=== PATIENT | female | born 1965 | race Caucasian/White ===

== ENCOUNTER 2019-09-24 13:07 | Emergency (ER) | payer BC, SELFPAY ==
--- NOTE | ~2019-09-24 | XR_ITS ---
EXAMINATION: XR elbow LT min 3V DATE: 09/24/2019 13:42 INDICATION: Left elbow pain. Fall. TECHNIQUE: 4 views of left elbow were obtained. COMPARISON: None. FINDINGS: Bone alignment is normal. No fracture. Joint spaces are well maintained. There is an enthes ophyte at medial humeral epicondyle. There is no elbow joint effusion. IMPRESSION: 1. No fracture. Reviewed, dictated and finalized at location A. T END ARCHITECT IMPRESSION: 1. No fracture.
[2019-09-24 13:23] VITALS: BP 123/83; PULSE 85; RESP 16; TEMP 36.4; O2SAT 98
--- NOTE | 2019-09-24 14:44 | ED.GENADULT ---
HPI - General Adult General Chief complaint: Extremity Injury, Upper Stated complaint: FALL/INJURED L ELBOW Time Seen by Provider: 09/24/19 14:44 Source: patient and RN notes reviewed Mode of arrival: ambulatory Limitations: no limitations History of Present Illness HPI narrative: 54-year-old female presents with complains of LT elbow tenderness and swelling for 6 days. Ice and Ibuprofen (800mg last this morning @07:00) with some relief. Lisa says she fell down onto concrete hitting her LT elbow. No radiation of pain. Exacerbation factors consist of movement and palpation of LT elbow. The relieving factor is immobility. Dominant hand is the RIGHT HAND. No suspected abuse. Denies hitting head with fall. Denies loss of consciousness, dizziness, or seizure activity. Remains active. Denies fever or chills. Lisa denies being says she is post menopausal. Some parts of this dictation were generated by voice recognition software and may contain typographical and/or grammatical inaccuracies. Related Data Home Medications Medication Instructions Recorded Confirmed B/P Med 09/24/19 levothyroxine [Synthroid] 100 mcg PO DAILY 09/24/19 09/24/19 Allergies Allergy/AdvReac Type Severity Reaction Status Date / Time latex Allergy Unknown SKIN Verified 09/24/19 13:32 IRRITATION Review of Systems Review of Systems: Narrative: CONSTITUTIONAL: Denies fever, chills, sweats. EYES: Denies visual changes, redness, discharge. ENT: Denies rhinorrhea, congestion, sore throat, otalgia. CARDIOVASCULAR: Denies chest pain, palpitations, edema. RESPIRATORY: Denies dyspnea, wheezing, cough. GASTROINTESTINAL: Denies abdominal pain, nausea, vomiting, diarrhea. GENITOURINARY: Denies dysuria, hematuria, abnormal discharge SKIN: Denies rash or itching. MUSCULOSKELETAL: Denies acute back pain or myalgia. Complains of LT elbow pain and swelling. NEUROLOGIC: Denies numbness or focal weakness. PSYCHIATRIC: Denies anxiety or depression. [facility] Past Medical History Medical History (Updated 09/25/19 @ 00:01 by Caryl Flowers) Hypertension Hypothyroidism Surgical History Surgical History (Updated 09/24/19 @ 14:51 by RAJWINDER Kumar) History of right knee joint replacement ACL Family History Family History (Updated 09/24/19 @ 14:52 by RAJWINDER Kumar) Mother Family history of malignant neoplasm of breast in first degree relative Diabetes mellitus Hypertension Social History Social History (Updated 09/24/19 @ 14:51 by RAJWINDER Kumar) Smoking status: Former smoker Second hand tobacco smoke exposure: No Smoking end date: 07/22/06 Alcohol intake: current Substance use: never Living arrangements: with family Occupation/Education: occupation Gender identity (if verbalized by the patient): Female Exam Narrative: Exam Narrative: GENERAL APPEARANCE: The patient is a well-developed, well-nourished child who is awake, active. Interacts appropriately with surroundings and examiner, in no acute distress. HEAD: Atraumatic. Normocephalic. No temporal or scalp tenderness. EYES: Moist and bright. Sclera and conjunctivae normal. No discharge. PERRLA. Extraocular motions intact. Gross visual acuity intact. NECK: Supple and nontender with full range of motion without discomfort. No meningeal signs. LUNGS: Equal and bilateral breath sounds without wheezes, rales or rhonchi. CHEST: The chest wall is without retractions or use of accessory muscles. HEART: Has a regular rate and rhythm without murmur, gallops, click or rub. ABDOMEN: Soft, nontender with positive active bowel sounds. No rebound tenderness. No masses, no hepatosplenomegaly. EXTREMITIES: Without cyanosis, clubbing or edema. LT UE (elbow) with mild reproducible tenderness with manipulation and palpation. No significant swelling and no ecchymosis. Normal strength and aligned. No deformity. Skin intact. No open areas or laceration
== END 2019-09-24 15:00 | disposition home or self-care (01) ==
PROVIDERS: Emergency Provider Nurse Practitioner Family; PCP Physician Assistant
DX: S50.02XA Contusion of left elbow, initial encounter (principal); W19.XXXA Unspecified fall, initial encounter; I10 Essential (primary) hypertension; E03.9 Hypothyroidism, unspecified; Z96.651 Presence of right artificial knee joint; Z87.891 Personal history of nicotine dependence
CPT/HCPCS: 73080; 99213; G0463

== ENCOUNTER 2020-04-12 11:47 | Emergency (ER) | payer BC, SELFPAY ==
--- NOTE | ~2020-04-12 | XR_ITS ---
EXAMINATION: XR knee LT min 4V EXAM DATE: 04/12/2020 12:09 INDICATION: Initial encounter following injury, with pain of the left knee. TECHNIQUE: Left knee frontal, crosstable lateral, orthogonal oblique projections for interpretation. There is no prior study for comparison. FINDINGS: There is large left knee lipohemarthrosis, likely result of the left lateral tibial platea u acute closed posttraumatic nondisplaced fracture. This finding has been indicated, marked on the ex amination for review, clinical correlation. No other acute findings are present. There is mild prima ry osteoarthritis. IMPRESSION: Acute left lateral tibial plateau fracture. Lipohemarthrosis. Reviewed, dictated and finalized at location B.
[2020-04-12 11:52] VITALS: BP 153/112; PULSE 90; RESP 16; TEMP 36.2; O2SAT 99
--- NOTE | 2020-04-12 12:00 | ED.LOWEXIN ---
HPI - Extremity Injury (Lower) General Chief Complaint: Extremity Injury, Lower Stated Complaint: injured l knee Source: patient and RN notes reviewed Limitations: no limitations History of Present Illness HPI Narrative: The patient, who is on a few meds, presents with left knee pain. Patient states she was walking her dog [large mastiff] prior to arrival , she slipped and fell landing on her left knee. She complains of moderate pain is worse with motion, better at rest, located laterally without bleeding or deformity. Surgical history is remarkable that she had a prior right ACL [[facility]] . Screening vitals remarkable for elevated blood pressure [she did not take her meds today ] andx-ray remarkable for nondisplaced left lateral tibial plateau fracture so patient referred to orthopedics on-call Dr. Cheng -who advises, wear crutches with knee immobilizer, to call to confirm appointment. Related Data Home Medications Medication Instructions Recorded Confirmed B/P Med 09/24/19 levothyroxine [Synthroid] 100 mcg PO DAILY 09/24/19 09/24/19 Allergies Allergy/AdvReac Type Severity Reaction Status Date / Time latex Allergy Unknown SKIN Verified 09/24/19 13:32 IRRITATION Review of Systems Review of Systems: Narrative: General/Constitutional: No weight loss,fever Eyes: N0: Redness,discharge Ears/Nose/Throat: No: Epistaxis,ear discharge Respiratory: Denies: Hemoptysis Gastrointestinal: No Vomiting, Bleeding-rectal Skin: No Lumps, eruption Neurologic: No Focal Weakness,Sz Hematologic: Denies: Petechiae/Purpura Psychiatric: No: Suicida ideationl All Other Systems: Reviewed and Negative [facility] Past Medical History Medical History (Updated 04/12/20 @ 12:27 by Gary Stark MD) Hypertension Hypothyroidism Surgical History Surgical History (Updated 09/24/19 @ 14:51 by RAJWINDER Kumar) History of right knee joint replacement ACL Family History Family History (Updated 09/24/19 @ 14:52 by RAJWINDER Kumar) Mother Family history of malignant neoplasm of breast in first degree relative Diabetes mellitus Hypertension Social History Social History (Updated 09/24/19 @ 14:51 by RAJWINDER Kumar) Smoking status: Former smoker Second hand tobacco smoke exposure: No Smoking end date: 07/22/06 Alcohol intake: current Substance use: never Gender identity (if verbalized by the patient): Female Comments At time of signature, agree with nursing past medical, surgical, social and family history. There is no relevant family history pertinent to the presenting complaint Exam Narrative: Exam Narrative: Appearance: Overweight/well nourished, Conjunctiva clear Mouth/Throat: Normal appearing, Supple Respiratory: Airway patent, No respiratory distress MS knee: Normal strength (mostly intact, limited flexion/extension by pain), Tenderness ( laterally, with mild decreased ROM), Swelling (laterally), Other ( unable to do Jim, anterior drawer, no collateral laxity Skin: Warm, Dry, Normal color Neurological: A&O x3, Normal affect Course Course Emergency Course: Films visualized, interpreted by radiologist, agree, Abnormal see report Vital Signs Vital signs: Vital Signs Temperature 97.2 F L 04/12/20 11:52 Pulse Rate 90 04/12/20 11:52 Respiratory Rate 16 04/12/20 11:52 Blood Pressure 153/112 H 04/12/20 11:52 Pulse Oximetry 99 04/12/20 11:52 Temperature 97.2 F L 04/12/20 11:52 Pulse Rate 90 04/12/20 11:52 Respiratory Rate 16 04/12/20 11:52 Blood Pressure 153/112 H 04/12/20 11:52 Pulse Oximetry 99 04/12/20 11:52 Discharge Plan Discharge Clinical Impression: Closed nondisplaced fracture of left tibial plateau Qualifiers: Encounter type: initial encounter Qualified Code(s): S82.145A - Nondisplaced bicondylar fracture of left tibia, initial encounter for closed fracture Patient Disposition: Home, Self-Care
== END 2020-04-12 12:43 | disposition home or self-care (01) ==
PROVIDERS: Emergency Provider Emergency Medicine; PCP Physician Assistant
DX: S82.145A Nondisplaced bicondylar fracture of left tibia, initial encounter for closed fracture (principal); W01.0XXA Fall on same level from slipping, tripping and stumbling without subsequent striking against object, initial encounter; Y93.K1 Activity, walking an animal; I10 Essential (primary) hypertension; E03.9 Hypothyroidism, unspecified; Z87.891 Personal history of nicotine dependence
CPT/HCPCS: 73564; 99214; G0463; L1830

== ENCOUNTER 2020-04-17 10:06 | Outpatient (CLI) | payer BC, SELFPAY ==
--- NOTE | ~2020-04-17 | CT_ITS ---
. EXAMINATION: CT knee LT wo con DATE: 04/17/2020 11:00 INDICATION: Left lateral tibial plateau fracture. TECHNIQUE: Computed tomography (CT) of the left knee was performed without intravenous contrast. Auto mated exposure control and iterative reconstruction technique were employed. The dose-length product was 504.84 mGy-cm. COMPARISON: Left knee radiographs 04/12/2020 FINDINGS: There is a split depression fracture of lateral tibial plateau involving 30% of the articul ar surface laterally with up to 5 mm depression of the articular surface. The split component of the fracture is nondisplaced. There is mild tricompartmental osteoarthritis of the knee. There is a large lipohemarthrosis. IMPRESSION: 1. Split depression fracture of lateral tibial plateau. 2. Mild left knee osteoarthritis. 3. Large lipohemarthrosis. Reviewed, dictated and finalized at location A.
== END 2020-04-17 10:07 | disposition home or self-care (01) ==
PROVIDERS: PCP Physician Assistant; Visit Provider Orthopaedic Surgery
DX: S82.122A Displaced fracture of lateral condyle of left tibia, initial encounter for closed fracture (principal); X58.XXXA Exposure to other specified factors, initial encounter; M17.12 Unilateral primary osteoarthritis, left knee
CPT/HCPCS: 73700

== ENCOUNTER 2022-05-28 01:06 | Day surgery (SDC) | payer OTHER, SELFPAY ==
[2022-05-17 14:12] VITALS: BMI 33.0
--- NOTE | 2022-05-27 20:01 | P.HP_ITS ---
History of Present Illness History of Present Illness Consent: Risks, benefits, and alternatives have been discussed and questions answered. Patient agrees to proceed with procedure. Chief complaint: neoplasm screening, dysphagia Narrative: Lisa Nagel is a 57 year old female with intermittent dysphagia. Her brother from esophageal ccancer. she has noted for the past year that foods such as sandwiches or rice will get caught nursing home down the chest. Drinking water may eventually help it go down. She denies weight loss. She is also due for colon cancer screening . Review of Systems Review of Systems: All systems reviewed & are unremarkable except as noted in HPI and below PMFSH Past Medical History Medical History Closed fracture of lateral portion of left tibial plateau Hypertension Hypothyroidism Latex allergy Seasonal allergies Vision abnormalities Surgical History Surgical History History of right knee joint replacement ACL Family History Family History Mother Family history of malignant neoplasm of breast in first degree relative Diabetes mellitus Hypertension Other Arthritis Heart disease Social History Social History Smoking status: Never smoker Second hand tobacco smoke exposure: No Smoking end date: 07/22/06 Alcohol intake: never Substance use: never Substance use type: does not use Living arrangements: with family Gender identity (if verbalized by the patient): Female Spiritual care concerns: No Meds Home Medications and Allergies Home Medications Medication Instructions Recorded Confirmed Type levothyroxine 100 mcg tablet 100 mcg PO DAILY 09/24/19 05/17/22 History (Synthroid) hydrochlorothiazide 12.5 mg tablet 12.5 mg PO DAILY 05/17/22 05/17/22 History latanoprost 0.005 % eye drops 1 drp EACH EYE DAILY 05/17/22 05/17/22 History pantoprazole 40 mg tablet,delayed 40 mg PO DAILY 05/17/22 05/17/22 History release Allergies Allergy/AdvReac Type Severity Reaction Status Date / Time latex Allergy Unknown SKIN Verified 05/28/22 11:36 IRRITATION Exam Const: General: alert Orientation/consciousness: patient oriented x3 Resp: Auscultation: clear to auscultation bilaterally Cardio: Rhythm: regular rhythm GI: GI Palp: Yes Soft to palpation and No Tenderness to palpation present (GI) Neuro: General: patient oriented x3 Assessment and Plan Assessment and plan (1) Dysphagia: Code(s): R13.10 - Dysphagia, unspecified Status: Acute Assessment and Plan: EGD with possible biopsy or dilatation or cautery. (2) Colon cancer screening: Code(s): Z12.11 - Encounter for screening for malignant neoplasm of colon Status: Acute Assessment and Plan: Colonoscopy with possible biopsy or polypectomy or cautery or injection of substances.
[2022-05-28 11:37] VITALS: BP 162/99; PULSE 100; RESP 22; TEMP 36.2; O2SAT 97
[2022-05-28] MEDS: LACTATED RINGERS 1,000 ML 150 ML IV CONT (11:40)
--- NOTE | 2022-05-28 12:08 | WPDANESEPPF ---
Anes - Initial Pre Proc Eval Procedure: Operation Date: 05/28/22 12:15 Proposed Procedures p Esophagogastroduodenoscopy & Screening Colonoscopy - Pratik Taylor MD Date/Time: 05/28/22 12:08 Surgeon: Pratik Taylor MD Pre Op Diagnosis: neoplasm screening, dysphagia Patient Data Age: 57 Gender: F Height: 1.65 m Weight: 92.2 kg Last Vital Signs Temp 97.1 F L 05/28/22 11:37 Pulse 100 05/28/22 11:37 Resp 22 H 05/28/22 11:37 BP 162/99 H 05/28/22 11:37 Pulse Ox 97 05/28/22 11:37 O2 Del Method Room Air 05/28/22 11:37 Allergies Allergy/AdvReac Type Severity Reaction Status Date / Time latex Allergy Unknown SKIN Verified 05/28/22 11:36 IRRITATION Home Medications Medication Instructions Recorded Confirmed Type levothyroxine 100 mcg tablet 100 mcg PO DAILY 09/24/19 05/17/22 History (Synthroid) hydrochlorothiazide 12.5 mg tablet 12.5 mg PO DAILY 05/17/22 05/17/22 History latanoprost 0.005 % eye drops 1 drp EACH EYE DAILY 05/17/22 05/17/22 History pantoprazole 40 mg tablet,delayed 40 mg PO DAILY 05/17/22 05/17/22 History release Patient hx anesthesia problems: none Family hx anesthesia problems: none Results Review: All pre-operative results and documents have been reviewed as part of the pre-operative evaluation. [facility] Past Medical History Medical History (Updated 05/27/22 @ 20:02 by Pratik Taylor MD) Closed fracture of lateral portion of left tibial plateau Hypertension Hypothyroidism Latex allergy Seasonal allergies Vision abnormalities Surgical History Surgical History History of right knee joint replacement ACL Family History Family History Mother Family history of malignant neoplasm of breast in first degree relative Diabetes mellitus Hypertension Other Arthritis Heart disease Social History Social History Smoking status: Never smoker Second hand tobacco smoke exposure: No Smoking end date: 07/22/06 Alcohol intake: never Substance use: never Substance use type: does not use Living arrangements: with family Gender identity (if verbalized by the patient): Female Spiritual care concerns: No Anes - Eval Final PreProcedure Day of Procedure 05/28/22 12:08 Patient weight: obese Heart: regular rate and rhythm Lungs: clear to auscultation Airway: Mallampati scale class II Neurological: alert and oriented Last oral intake: >/= 8 hours ASA classification: II Emergent: no Anesthetic plan: proceed Anesthesia type and monitoring: general GIVS and standard monitoring Results Review: All pre-operative results and documents have been reviewed as part of the pre-operative evaluation. Informed Consent: The patient's anesthetic plan and its attendant risks and benefits were discussed with the patient/family/POA. Questions were solicited and answers provided to the satisfaction of the patient/family/POA.
--- NOTE | 2022-05-28 12:50 | SUR.OPER ---
egd ended at 1244, colonoscopy started at 1250.
[2022-05-28] MEDS: SIMETHICONE ORAL SUSPENSION 20 MG/0.3 ML 30 ML BOTTLE 0.6 ML IRRIGATION (12:55)
[2022-05-28 13:06] VITALS: BP 96/60; PULSE 85; RESP 18; O2SAT 95
[2022-05-28 13:16] VITALS: BP 99/63; PULSE 83; RESP 13; O2SAT 95
[2022-05-28 13:26] VITALS: BP 118/83; PULSE 82; RESP 23; O2SAT 97
== END 2022-05-28 13:37 | disposition home or self-care (01) ==
PROVIDERS: PCP Physician Assistant; Visit Provider Internal Medicine Gastroenterology
PROC: 0DJ08ZZ Inspection of Upper Intestinal Tract, Via Natural or Artificial Opening Endoscopic (ICD-10-PCS; CPT 43235; principal; 2022-05-28 12:15)
DX: Z12.11 Encounter for screening for malignant neoplasm of colon (principal); K64.8 Other hemorrhoids; K57.30 Diverticulosis of large intestine without perforation or abscess without bleeding; K21.9 Gastro-esophageal reflux disease without esophagitis; I10 Essential (primary) hypertension; E03.9 Hypothyroidism, unspecified; E66.9 Obesity, unspecified; Z68.33 Body mass index [BMI] 33.0-33.9, adult
CPT/HCPCS: 45378; 43239; 87081; 88305; J2704; J7120

== ENCOUNTER 2024-02-21 18:35 | Emergency (ER) | payer OTHER, SELFPAY ==
--- NOTE | ~2024-02-21 | XR_ITS ---
EXAMINATION: XR soft tissue neck DATE: 02/21/2024 19:15 INDICATION: Food bolus TECHNIQUE: AP and lateral views of the soft tissues of the neck were obtained. COMPARISON: None. FINDINGS: The visualized cervical and upper thoracic airway is patent throughout. Normal epiglottis a nd prevertebral soft tissues. No radiopaque foreign bodies identified. Moderate cervical spondylosis. Apices of lungs are clear. IMPRESSION: 1. Moderate cervical spondylosis. Otherwise unremarkable study with patent airway and no foreign bodi es identified. Reviewed, dictated and finalized at location A. IMPRESSION: 1. Moderate cervical spondylosis. Otherwise unremarkable study with patent airw ay and no foreign bodies identified.
--- NOTE | 2024-02-21 18:38 | ED.GENADULT ---
HPI - General Adult General Chief complaint: Skin/Abscess/Foreign Body <Hood Huerta APRN - Last Filed: 02/21/24 18:43> Stated complaint: Foreign Body In Throat <Hood Huetra APRN - Last Filed: 02/21/24 18:43> Time Seen by Provider: 02/21/24 18:38 <Hood Huerta APRN - Last Filed: 02/21/24 18:43> patient states she was eating rice and cauliflower and felt like it got stuck in her throat. patient has a hx of dysphagia and had egd 1 year ago for same symptoms. patient denies any other symptoms PE: A&OX3, speaking in complete sentences, BS CTA, skin warm and intact, moving all extremities <Hood Huerta APRN - Last Filed: 02/21/24 18:43> Related Data Home medications: Home Medications Medication Instructions Recorded Confirmed levothyroxine 100 mcg tablet 100 mcg PO DAILY 09/24/19 05/17/22 (Synthroid) hydrochlorothiazide 12.5 mg tablet 12.5 mg PO DAILY 05/17/22 05/17/22 latanoprost 0.005 % eye drops 1 drp EACH EYE DAILY 05/17/22 05/17/22 pantoprazole 40 mg tablet,delayed 40 mg PO DAILY 05/17/22 05/17/22 release <Hood Huerta APRN - Last Filed: 02/21/24 18:43> Allergies/adverse reactions: Allergies Allergy/AdvReac Type Severity Reaction Status Date / Time latex Allergy Unknown SKIN Verified 02/21/24 18:44 IRRITATION <Hood Huerta APRN - Last Filed: 02/21/24 18:43> [facility] Past Medical History Medical History: Medical History (Updated 02/21/24 @ 19:59 by Mike Nix MD) Closed fracture of lateral portion of left tibial plateau Hypertension Hypothyroidism Latex allergy Seasonal allergies Vision abnormalities <Hood Huerta APRN - Last Filed: 02/21/24 18:43> Surgical History Surgical History: Surgical History History of right knee joint replacement ACL <Hood Huerta APRN - Last Filed: 02/21/24 18:43> Family History Family History: Family History Mother Family history of malignant neoplasm of breast in first degree relative Diabetes mellitus Hypertension Other Arthritis Heart disease <Hood Huerta APRN - Last Filed: 02/21/24 18:43> Social History Social History: Social History Smoking status: Never smoker Second hand tobacco smoke exposure: No Smoking end date: 07/22/06 Alcohol intake: never Substance use: never Substance use type: does not use Living arrangements: with family Occupation/Education: occupation Gender identity (if verbalized by the patient): Female Spiritual care concerns: No <Hood Huerta APRN - Last Filed: 02/21/24 18:43> Exam Narrative: APPEARANCE: No apparent distress. Head: atraumatic. EYES: EOMI, NOSE: Atraumatic NECK: Trachea midline RESPIRATORY: No increased rate of breathing CTAB CARDIOVASCULAR: RRR, ABDOMINAL: Non-distended MUSCULOSKELETAl: No obvious deformities NEURO: Alert. Moving 4/4 extremities SKIN:: Warm, dry. Normal color PSYCHIATRIC: Normal affect <Mike Nix MD - Last Filed: 02/21/24 19:59> Course Vital Signs Vital signs: Vital Signs Temperature 97.0 F L 02/21/24 18:39 Pulse Rate 91 02/21/24 18:39 Respiratory Rate 19 02/21/24 18:39 Blood Pressure 155/107 H 02/21/24 18:39 Pulse Oximetry 98 02/21/24 18:39 Oxygen Delivery Room Air 02/21/24 18:39 Temperature 97.0 F L 02/21/24 18:39 Pulse Rate 91 02/21/24 18:39 Respiratory Rate 19 02/21/24 18:39 Blood Pressure 155/107 H 02/21/24 18:39 Pulse Oximetry 98 02/21/24 18:39 Oxygen Delivery Room Air 02/21/24 18:39 <Hood Huerta APRN - Last Filed: 02/21/24 18:43> Vital Signs Temperature 97.0 F L 02/21/24 18:39 Pulse Rate 91 02/21/24 18:39 Respiratory Rate 19 02/21/24 18:39 Blood Pressure 155/107 H 02/21/24 18:39 Pulse Oximetry 98 02/21/24
[2024-02-21 18:39] VITALS: BP 155/107; PULSE 91; RESP 19; TEMP 36.1; O2SAT 98
--- NOTE | 2024-02-21 19:47 | PC.NURSE ---
Pt states while she was waiting to be seen she felt the food bols go down. Pt states she does not feel like anything is stuck in her throat anymore.
[2024-02-21 20:13] VITALS: BP 152/88; PULSE 88; RESP 15; O2SAT 98
== END 2024-02-21 20:14 | disposition home or self-care (01) ==
LOC: ANHED 20:06
PROVIDERS: Emergency Provider Emergency Medicine; PCP Physician Assistant
DX: T18.128A Food in esophagus causing other injury, initial encounter (principal); I10 Essential (primary) hypertension; E03.9 Hypothyroidism, unspecified; Z96.651 Presence of right artificial knee joint; Z87.891 Personal history of nicotine dependence; M47.812 Spondylosis without myelopathy or radiculopathy, cervical region; W44.F3XA Food entering into or through a natural orifice, initial encounter
CPT/HCPCS: 70360; 99283

== ENCOUNTER 2024-05-01 11:59 | Outpatient (CLI) | payer OTHER, SELFPAY ==
--- NOTE | ~2024-05-01 | XR_ITS ---
Lumbosacral Spine: AP and lateral views Clinical History: Pain Findings: The normal lordotic curve is maintained. The vertebral bodies and posterior elements are i ntact. The intervertebral disc spaces are preserved. There is moderate facet arthropathy from L4 thr ough S1. The sacroiliac joints are normally outlined. Impression: Facet arthropathy, as above. Reviewed, dictated and finalized at location . Impression: Facet arthropathy, as above.
== END 2024-05-01 12:00 | disposition home or self-care (01) ==
LOC: MICIMG 12:01
PROVIDERS: PCP Physician Assistant; Visit Provider Physician Assistant
DX: M54.16 Radiculopathy, lumbar region (principal)
CPT/HCPCS: 72100